=== PATIENT | female | born 1985 | race Caucasian/White ===

== ENCOUNTER 2020-12-29 14:58 | Emergency (ER) | payer OTHER ==
[~2020-12-29] VITALS: Ht 154.9 cm; Wt 55.8 kg
[2020-12-29] MEDS ORDERED: CIPRO500 MG PO (16:49)
== END 2020-12-29 17:14 | disposition home or self-care (01) ==
LOC: ER 14:58
DX: S81.021A Laceration with foreign body, right knee, initial encounter (principal); W01.198A Fall on same level from slipping, tripping and stumbling with subsequent striking against other object, initial encounter; Y93.01 Activity, walking, marching and hiking; Y92.413 State road as the place of occurrence of the external cause; Y99.8 Other external cause status